=== PATIENT | male | born 2000 | race American Indian/Alaskan Native ===

== ENCOUNTER 2018-01-04 12:46 | Emergency (ER) | payer SELFPAY ==
[2018-01-04 14:27] VITALS: BP 107/63
--- NOTE | 2018-01-04 15:29 | Emergency Department Report ---
Chief Complaint: Sore Throat Stated Complaint: SOAR THROAT/PAIN Time Seen by Provider: 01/04/18 15:15 - HPI History of Present Illness: 17-year-old male presents to the emergency department with his mother with a complaint of a 2 to three-day history of a sore throat. No fever , no drooling or trismus. No past medical history. No recent travel or sick contacts at home. He has not taken anything for her symptoms. Presentation. - ROS Review of Systems: Positive for sore throat Negative for fever, drooling, trismus, cough - Exam Vital Signs: Vital Signs 01/04/18 14:22 Temperature 99.4 F Pulse Rate 94 H Respiratory 56 H Rate Blood Pressure 107/63 O2 Sat by Pulse 100 Oximetry Physical Exam: Patient does have some difficulty completely opening his mouth secondary to the discomfort. There is no palpable lymphadenopathy. Bilateral tonsillar hypertrophy and erythema but no exudates. There are some thick secretion seen in the posterior pharynx. MSE screening note: Focused history and physical exam performed. Due to findings the following was ordered: Patient will have a rapid strep test ED Disposition for MSE Condition: Stable Referrals: PRIMARY CARE, [Primary Care Provider] - 3-5 Days
[2018-01-04] MEDS ORDERED: TORADOL IM ONE (16:28)
--- NOTE | 2018-01-04 16:30 | Emergency Department Report ---
ED ENT HPI - General Chief complaint: Sore Throat Stated complaint: SOAR THROAT/PAIN Time Seen by Provider: 01/04/18 15:15 Source: patient Mode of arrival: Ambulatory Limitations: No Limitations - History of Present Illness Initial comments: This is a 17-year-old male who presents with sore throat for 3 days. No past medical history. Patient reports pain as 10 out of 10 on pain scale calls and difficulty swallowing. Patient states she took NyQuil and drinking tea. Patient mother is at bedside and states they have tried home remedies with no improvement of symptoms. He denies recent travel, sick contacts, fever,, tongue swelling, and chest pain. MD complaint: sore throat Onset/Timin -: days(s) Location: throat Severity: moderate Severity scale (0 -10): 5 Quality: aching Consistency: constant Improves with: none Worsens with: swallowing, eating Associated Symptoms: sore throat - Related Data Previous Rx's Medication Instructions Recorded Last Taken Type Amoxicillin 500 mg PO BID #14 capsule 01/04/18 Unknown Rx Naproxen [Naprosyn] 500 mg PO TID #21 tablet 01/04/18 Unknown Rx Allergies Allergy/AdvReac Type Severity Reaction Status Date / Time orange juice Allergy Hives Verified 01/04/18 14:22 peanut butter Allergy Hives Uncoded 01/04/18 14:22 sea food Allergy Angioedema Uncoded 01/04/18 14:20 ED Dental HPI - General Chief complaint: Sore Throat Stated complaint: SOAR THROAT/PAIN Time Seen by Provider: 01/04/18 15:15 Source: patient Mode of arrival: Ambulatory Limitations: No Limitations - Related Data Previous Rx's Medication Instructions Recorded Last Taken Type Amoxicillin 500 mg PO BID #14 capsule 01/04/18 Unknown Rx Naproxen [Naprosyn] 500 mg PO TID #21 tablet 01/04/18 Unknown Rx Allergies Allergy/AdvReac Type Severity Reaction Status Date / Time orange juice Allergy Hives Verified 01/04/18 14:22 peanut butter Allergy Hives Uncoded 01/04/18 14:22 sea food Allergy Angioedema Uncoded 01/04/18 14:20 ED Review of Systems ROS: Stated complaint: SOAR THROAT/PAIN Other details as noted in HPI Constitutional: denies: chills, fever ENT: throat pain. denies: ear pain, dental pain, hearing loss, epistaxis, congestion Respiratory: denies: cough, shortness of breath, wheezing Cardiovascular: denies: chest pain, palpitations Gastrointestinal: denies: abdominal pain, nausea, diarrhea Neurological: denies: headache, weakness, paresthesias Psychiatric: denies: anxiety, depression ED Past Medical Hx - Past Medical History Previous Medical History?: No - Surgical History Past Surgical History?: No - Social History Smoking Status: Never Smoker Substance Use Type: None - Medications Home Medications: Home Medications Medication Instructions Recorded Confirmed Last Taken Type Amoxicillin 500 mg PO BID #14 capsule 01/04/18 Unknown Rx Naproxen [Naprosyn] 500 mg PO TID #21 tablet 01/04/18 Unknown Rx ED Physical Exam - General Limitations: No Limitations General appearance: alert, in no apparent distress - ENT ENT exam: Present: mucous membranes moist, other (turbinates mildly congested with clear discharge). Absent: normal orophraynx (erythematous posterior pharynx, tonsils enlarged, erythema, w/o exudate) - Neck Neck exam: Present: normal inspection - Respiratory Respiratory exam: Present: normal lung sounds bilaterally. Absent: respiratory distress - Cardiovascular Cardiovascular Exam: Present: regular rate, normal rhythm. Absent: systolic murmur, diastolic murmur, rubs, gallop - GI/Abdominal GI/Abdominal exam: Present: soft, normal bowel sounds. Absent: organomegaly, mass - Neurological Exam Neurological exam: Present: alert, oriented X3 - Psychiatric Psychiatric exam: Present: normal affect, normal mood - Skin Skin exam: Present: warm, dry, intact, normal color. Absent: rash ED Course Vital Signs 01/04/18 14:22 Temperature 99.4 F Pulse Rate 94 H Respiratory 56 H Rate Blood Pressure 107/63 O2 Sat by Pulse 100 Oximetry ED Medical Decision Making - Lab Data Lab Results 01/04/18 Range/Units 15:30 Group A Strep Rapid Negative (Negative) - Medical Decision Making Patient examined by me and Dr. Valdivia in fast track. No distress noted. Vitals stable. Rapid strep obtained and negative. Given bicillin I-A 1.2 mL IM once in ER for acute pharyngitis. Start penicillin V 500 mg po bid x 10 days. Take Tylenol or ibuprofen for pain. Discussed plan with patient and he agreed with plan to treat outpatient. Discharged home. Return to work tomorrow. Follow up with PCP in 48-72 hours. Critical care attestation.: If time is entered above; I have spent that time in minutes in the direct care of this critically ill patient, excluding procedure time. ED Disposition Clinical Impression: Sore throat Acute pharyngitis Qualifiers: Pharyngitis/tonsillitis etiology: unspecified etiology Qualified Code(s): J02.9 - Acute pharyngitis, unspecified Disposition: TO HOME OR SELFCARE Is pt being admited?: No Does the pt Need Aspirin: No Condition: Stable Instructions: Pharyngitis (ED) Additional Instructions: Expect symptoms to improve within 3 or 4 days. Complete full course of antibiotics as prescribed. There is no need for bed rest or isolation. Use Tylenol or ibuprofen for symptoms of sore throat, headache, and fever. Return to work in 24 hours of taking antibiotics. Follow up with Primary Care Provider in 48-72 hours. Prescriptions: Amoxicillin 500 mg PO BID #14 capsule Naproxen [Naprosyn] 500 mg PO TID #21 tablet Referrals: [facility] [Outside] - 3-5 Days [facility] [Outside] - 3-5 Days [facility] [Outside] - 3-5 Days Forms: Work/School Release Form(ED) Time of Disposition: 16:39 Print Language: BRUNEIAN
[2018-01-04] MEDS ORDERED: BICILLIN L-A IM ONE (16:39)
== END 2018-01-04 17:07 | disposition home or self-care (01) ==
LOC: ED 12:46
DX: J02.9 Acute pharyngitis, unspecified (principal); Z91.018 Allergy to other foods; Z91.013 Allergy to seafood
CPT/HCPCS: 87116; 87430; 96372; 99283; J0561; J1885

== ENCOUNTER 2018-08-15 17:07 | Emergency (ER) | payer OTHER ==
--- NOTE | 2018-08-15 17:53 | Emergency Department Report ---
Blank Doc - Documentation Documentation: This is a 17-year-old male that presents with penile discharge and dysuria. This initial assessment/diagnostic orders/clinical plan/treatment(s) is/are subject to change based on patient's health status, clinical progression and re- assessment by fellow clinical providers in the ED. Further treatment and workup at subsequent clinical providers discretion. Patient/guardians urged not to elope from the ED as their condition may be serious if not clinically assessed and managed. Initial orders include: 1- Patient sent to MAIN ED for further evaluation and treatment 2- UA 3- GC
[2018-08-15 20:31] LABS: Bacteria,Urine 1+ /HPF (Negative); Bilirubin,Urine NEG (Negative); Blood,Urine SM (Negative); Color,Urine Yellow (Yellow); Mucus,Urine 2+ /HPF; Protein,Urine <15 mg/dL mg/dL (Negative)
[2018-08-15] MEDS ORDERED: ROCEPHIN IM ONE (20:32)
[2018-08-15] MEDS ORDERED: XYLOCAINE 1% MPF 5 mL INFILTRATI ONE (20:32)
[2018-08-15 20:33] LABS: WBC,Urine > 182.0 /HPF (0.0-6.0)
--- NOTE | 2018-08-15 20:37 | Emergency Department Report ---
ED Male HPI - General Chief complaint: Urogenital-Male Stated complaint: BURNING WITH URINATION Time Seen by Provider: 08/15/18 17:52 Source: patient Mode of arrival: Ambulatory Limitations: No Limitations - History of Present Illness Initial comments: 17-year-old -[place] male presents to the emergency room stating that his sexual partner was recently tested for gonorrhea and chlamydia. Patient is requesting STD check since he's has dysuria and penile discharge. Patient admits to unprotected intercourse. 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 MD Complaint: penile discharge, dysuria -: days(s) (3) Radiation: none Worsens with: urination new sexual partner discharge, dysuria - Related Data Sexually active: Yes (unprotected) Previous Rx's Medication Instructions Recorded Last Taken Type Amoxicillin 500 mg PO BID #14 capsule 01/04/18 Unknown Rx Naproxen [Naprosyn] 500 mg PO TID #21 tablet 01/04/18 Unknown Rx Azithromycin [Zithromax] 1,000 mg PO ONCE #4 tablet 08/15/18 Unknown Rx Allergies Allergy/AdvReac Type Severity Reaction Status Date / Time orange juice Allergy Hives Verified 01/04/18 14:22 peanut butter Allergy Hives Uncoded 01/04/18 14:22 sea food Allergy Angioedema Uncoded 01/04/18 14:20 ED Review of Systems ROS: Stated complaint: BURNING WITH URINATION Other details as noted in HPI Comment: All other systems reviewed and negative ED Past Medical Hx - Past Medical History Previous Medical History?: No - Surgical History Past Surgical History?: No - Social History Smoking Status: Never Smoker Substance Use Type: None - Medications Home Medications: Home Medications Medication Instructions Recorded Confirmed Last Taken Type Amoxicillin 500 mg PO BID #14 capsule 01/04/18 Unknown Rx Naproxen [Naprosyn] 500 mg PO TID #21 tablet 01/04/18 Unknown Rx Azithromycin [Zithromax] 1,000 mg PO ONCE #4 tablet 08/15/18 Unknown Rx ED Physical Exam - General Limitations: No Limitations General appearance: alert, in no apparent distress - Head Head exam: Present: atraumatic, normocephalic - Eye Eye exam: Present: normal appearance - ENT ENT exam: Present: mucous membranes moist - Neck Neck exam: Present: normal inspection - GI/Abdominal GI/Abdominal exam: Present: soft. Absent: distended, tenderness - exam: Present: urethral discharge, circumcision. Absent: testicular tenderness External exam: Present: normal external exam - Extremities Exam Extremities exam: Present: normal inspection - Neurological Exam Neurological exam: Present: normal gait - Psychiatric Psychiatric exam: Present: normal affect, normal mood - Skin Skin exam: Present: warm, dry, intact, normal color. Absent: rash ED Course Vital Signs 08/15/18 17:52 Temperature 98.7 F Pulse Rate 85 Respiratory 16 Rate Blood Pressure 117/54 O2 Sat by Pulse 100 Oximetry ED Medical Decision Making - Medical Decision Making Patient has been evaluated by this provider in fast track. Gonorrhea and Chlamydia probe sent to lab urinalysis has been ordered Patient be given Rocephin 250 mg IM and sent a prescription for azithromycin to complete. Patient is instructed to follow-up with the health department for further STD check for HIV, syphilis, herpes, hepatitis. Critical care attestation.: If time is entered above; I have spent that time in minutes in the direct care of this critically ill patient, excluding procedure time. ED Disposition Clinical Impression: STD exposure, Urethritis, unspecified Disposition: DC-01 TO HOME OR SELFCARE Is pt being admited?: No Does the pt Need Aspirin: No Condition: Stable Instructions: Nonspecific Urethritis in Men (ED), Safe Sex (ED), Sexually Transmitted Diseases (ED) Additional Instructions: Complete antibiotics as prescribed. Follow-up with the health department for further STD check such as HIV, syphilis, herpes, hepatitis. Please use condoms when you have intercourse. Prescriptions: Azithromycin [Zithromax] 1,000 mg PO ONCE #4 tablet Referrals: JATIN JACKSON MD [Primary Care Provider] - 3-5 Days [facility] [Outside] - 3[facility]5 Days [facility] [Outside[facility] - 3-5 Days [facility] [Outside] - 3-5 Days [facility] [Outside] - 3-5 Days Forms: STI Treatment and Prevention
[2018-08-15 21:20] VITALS: BP 130/62
== END 2018-08-15 21:19 | disposition home or self-care (01) ==
LOC: ED 17:07
DX: Z20.2 Contact with and (suspected) exposure to infections with a predominantly sexual mode of transmission (principal); N34.2 Other urethritis; Z91.010 Allergy to peanuts; Z91.013 Allergy to seafood; Z91.018 Allergy to other foods
CPT/HCPCS: 81001; 87086; 87591; 96372; 99283; J0696